=== PATIENT | male | born 1965 | race Caucasian/White ===

== ENCOUNTER 2020-01-28 22:26 | Emergency (ER) | payer SELFPAY ==
[2020-01-28 22:31] VITALS: BP 158/96; PULSE 84; RESP 18; TEMP 36.4; O2SAT 98
--- NOTE | 2020-01-28 22:46 | ED.ABDPAIN ---
HPI - Abdominal Pain General Chief Complaint: Abdominal Pain Stated Complaint: ingestion of old, green, jacuzzi water Time Seen by Provider: 01/28/20 22:46 Source: patient Mode of arrival: ambulatory Limitations: no limitations History of Present Illness HPI narrative: Patient presenting for evaluation of belching, burping after accidental ingestion of stagnant water. Patient states he and a family member/friend were draining a Jacuzzi that had had water sitting in it for several years, a hose connection was changed, and the patient went to take a drink of what he thought was clean water, when he accidentally had a gulps of very dirty water that was coming from the Jacuzzi that they were draining. Patient is denying any abdominal pain. He reports burping. He denies nausea or vomiting. Patient is from [place], is worried that he could have an exposure to different bacteria or parasites. Related Data Allergies Allergy/AdvReac Type Severity Reaction Status Date / Time No Known Allergies Allergy Verified 01/28/20 23:26 Review of Systems Review of Systems: Narrative: CONSTITUTIONAL: Denies fever CARDIOVASCULAR: Denies chest pain RESPIRATORY: Denies cough or dyspnea. GASTROINTESTINAL: Denies abdominal pain, reports belching and burping SKIN: Denies rash MUSCULOSKELETAL: Denies back pain NEUROLOGIC: Denies headache PMFSH Past Medical History Medical History (Updated 01/28/20 @ 23:28 by Kateryna Churchill MD) [place] No pertinent past medical history Social History Social History (Updated 01/28/20 @ 23:28 by Kateryna Churchill MD) Smoking status: Never smoker Alcohol intake: never Substance use: never Living arrangements: with family Gender identity (if verbalized by the patient): Male Exam Narrative: Exam Narrative: GENERAL: Awake, alert, conversant HEAD: Normocephalic, atraumatic. EYES: PERRLA and EOMI. ENT: Nares clear, no rhinorrhea or epistaxis. Mucous membranes moist. NECK: Supple. CHEST: No respiratory distress, breathing even and non labored HEART: Regular rate, sinus rhythm ABDOMEN:Non distended, non tender, umbilical hernia present, nontender, no erythema EXTREMITIES: Normal range of motion. No edema. SKIN: Warm, dry, no rash. NEURO:No focal deficits. Alert and oriented x3 Course Vital Signs Vital signs: Vital Signs Temperature 36.4 C L 01/28/20 22:31 Pulse Rate 84 01/28/20 22:31 Respiratory Rate 18 01/28/20 22:31 Blood Pressure 158/96 H 01/28/20 22:31 Pulse Oximetry 98 01/28/20 22:31 Temperature 36.4 C L 01/28/20 22:31 Pulse Rate 84 01/28/20 22:31 Respiratory Rate 18 01/28/20 22:31 Blood Pressure 158/96 H 01/28/20 22:31 Pulse Oximetry 98 01/28/20 22:31 MDM - Abdominal Pain MDM Narrative Medical decision making narrative: Patient was low risk ingestion, no current severe symptoms. However, patient is not from the area, is traveling in route to [place] for his job. I think at this point we can do watch and wait prescriptions for antibiotics in case patient were to develop symptoms. He was then discharged home. Discharge Plan Discharge Clinical Impression: Belching symptom Ingestion of unknown substance Qualifiers: Encounter type: initial encounter Injury intent: accidental or unintentional Qualified Code(s): T65.91XA - Toxic effect of unspecified substance, accidental (unintentional), initial encounter Patient Disposition: Home, Self-Care Condition: Stable Additional Instructions: It is possible you could have ingested bacteria or parasites from the water that you accidentally drink. We will prescribe you antibiotics to take to help kill any bacteria. Should you have any recurrent nausea, vomiting, severe abdominal pain, please go to be evaluated at an emergency department. You are welcome to return to this facility. You may experience some diarrhea with the antibiotics or as a result of the water you accidentally ingested. This is normal as l
[2020-01-28 23:56] VITALS: BP 142/79; PULSE 80; RESP 16; O2SAT 99
== END 2020-01-28 23:58 | disposition home or self-care (01) ==
PROVIDERS: Emergency Provider Emergency Medicine
DX: T65.91XA Toxic effect of unspecified substance, accidental (unintentional), initial encounter (principal); R14.2 Eructation
CPT/HCPCS: 99283